=== PATIENT | female | born 1985 | race African-American/Black ===

== ENCOUNTER 2021-02-24 13:21 | Emergency (ER) | payer MEDICAID ==
[~2021-02-24] VITALS: Ht 152.4 cm; Wt 46.0 kg
[2021-02-24] MEDS ORDERED: SODIUM CHLORIDE 0.9% 1,000 ML IV ONE (14:15)
[2021-02-24 14:40] VITALS: BP 133/79
== END 2021-02-24 14:44 | disposition home or self-care (01) ==
LOC: ER 13:21
DX: F15.10 Other stimulant abuse, uncomplicated (principal); F23 Brief psychotic disorder; Z88.0 Allergy status to penicillin
CPT/HCPCS: 99283; J7030

== ENCOUNTER 2021-02-24 19:10 | Emergency (ER) | payer MEDICAID, OTHER ==
[~2021-02-24] VITALS: Ht 162.6 cm; Wt 41.0 kg
[2021-02-24] MEDS ORDERED: HALOPERIDOL LACTATE 5MG/ML VIAL IM ONE (23:00)
[2021-02-24] MEDS ORDERED: MIDAZOLAM HCL 2 MG/2 ML VIAL IM ONE (23:45)
[2021-02-25 00:52] LABS: BASOPHILS % 0.6 % (0.0-2.0); EOSINOPHILS % 1.6 % (0.0-5.0); HEMATOCRIT. 34.8 % (36.0-48.0); HEMOGLOBIN. 12.2 g/dL (12.0-16.0); LYMPHOCYTES % 38.9 % (20.0-50.0); MEAN CORPUSCULAR HEMOGLOBIN 34.6 pg (28.0-32.0); MEAN CORPUSCULAR VOLUME 98.4 fL (81.0-99.0); MEAN PLATELET VOLUME 7.4 fl (7.4-10.4); MONOCYTES % 11.6 % (2.0-8.0); NEUTROPHILS % 47.3 % (40.0-76.0); PLATELET 272 x1000/uL (130-400); RED BLOOD CELL COUNT 3.53 mill/uL (4.2-5.4); RED CELL DISTRIBUTION WIDTH 13.7 % (11.6-14.6)
[2021-02-25 00:57] LABS: CHLORIDE 106 mEq/L (98-107)
[2021-02-25 01:00] LABS: PROTHROMBIN TIME 10.3 sec (9.6-11.0)
[2021-02-25 01:02] LABS: HCG SCREEN NEGATIVE
[2021-02-25 01:21] LABS: ETHANOL BLOOD 315 mg/dL
[2021-02-25] MEDS ORDERED: POTASSIUM CHLORIDE 20MEQ TABLET SR PO SCH (01:30)
[2021-02-25] MEDS ORDERED: SODIUM CHLORIDE 0.9% 1,000 ML IV ONE (01:30)
[2021-02-25] MEDS ORDERED: POTASSIUM CHLORIDE INJ 40 MEQ in DEXT 5% WATER 500 ML IV SCH (03:00)
[2021-02-25 06:33] VITALS: BP 95/63
== END 2021-02-25 07:44 | disposition home or self-care (01) ==
LOC: ER 19:10
DX: R41.82 Altered mental status, unspecified (principal); T51.0X1A Toxic effect of ethanol, accidental (unintentional), initial encounter; Y92.89 Other specified places as the place of occurrence of the external cause; F15.10 Other stimulant abuse, uncomplicated
CPT/HCPCS: 36415; 70450; 80053; 80320; 84484; 84703; 85025; 85610; 93005; 96361; 96365; 96366; 96372; 99285; A4217; J1630; J2250; J3480; J7030; J7060; Z7610; G0480

== ENCOUNTER 2021-12-21 16:35 | Emergency (ER) | payer MEDICAID ==
[~2021-12-21] VITALS: Ht 162.6 cm; Wt 53.0 kg
[2021-12-22] MEDS ORDERED: TETANUS, DIPHTHERIA, PERTUSSIS VAC/PF 0.5ML (>10YR OLD) IM ONE (00:15)
[2021-12-22] MEDS ORDERED: HYDROCODONE/ACETAMINOPHEN 5/325MG TABLET PO ONE (00:15)
[2021-12-22] MEDS ORDERED: SILVER SULFADIAZINE 1% CREAM 25GM TOP ONE (00:15)
[2021-12-22] MEDS ORDERED: SILV20CR13 TP (00:32)
[2021-12-22 00:40] VITALS: BP 130/90
== END 2021-12-22 01:30 | disposition home or self-care (01) ==
LOC: ER 16:35
DX: T21.29XA Burn of second degree of other site of trunk, initial encounter (principal); T21.12XA Burn of first degree of abdominal wall, initial encounter; G40.909 Epilepsy, unspecified, not intractable, without status epilepticus; F12.10 Cannabis abuse, uncomplicated; F15.10 Other stimulant abuse, uncomplicated; F10.10 Alcohol abuse, uncomplicated; Y90.9 Presence of alcohol in blood, level not specified; T31.0 Burns involving less than 10% of body surface; Z88.0 Allergy status to penicillin; X10.1XXA Contact with hot food, initial encounter; Y93.89 Activity, other specified; Y92.018 Other place in single-family (private) house as the place of occurrence of the external cause
CPT/HCPCS: 82962; 90471; 90715; 99283